=== PATIENT | male | born 1980 | race Caucasian/White ===

== ENCOUNTER 2020-01-02 08:08 | Emergency (ER) | payer OTHER ==
[2020-01-02 08:18] VITALS: RESP 18
[2020-01-02 08:39] LABS: Appearance,Urine Clear (Clear); Bacteria,Urine Rare /hpf; Bilirubin,Urine Negative (Negative); Blood,Urine Negative (Negative); Color,Urine Yellow; Glucose,Urine (UA) Negative (Negative); Ketones,Urine 1+ (Negative); Leukocyte Esterase,Urine Trace (Negative); Mucus,Urine Rare /hpf; Nitrite,Urine Negative (Negative); PH, Urine 6.5 (5.0-8.0); Protein,Urine 1+ (Negative); Specific Gravity,Urine 1.038 (1.001-1.035); WBC,Urine 1 /hpf (0-5)
--- NOTE | 2020-01-02 08:45 | ED ---
General Adult HPI - General Chief complaint: Urogenital Stated complaint: Tooth pain and Male Time Seen by Provider: 01/02/20 08:19 Source: patient, RN notes reviewed Mode of arrival: ambulatory Limitations: no limitations - History of Present Illness Initial comments: 39-year-old male presents emergency Department with chief complaint of left upper dental pain, left testicular swelling. Patient states that he's had broken tooth for a while but states it's been coming more painful. Denies any fevers or chills no difficulty swallowing no sore throat mild swelling noted. Patient also states that he's had left testicular pain patient states it's swollen. Patient states he has no dysuria no penile discharge. Has no concern for possible STD no abdominal pain no history of hernia. - Related Data Previous Rx's Medication Instructions Recorded Ibuprofen [Motrin] 600 mg PO Q8HR PRN #30 tab 01/02/20 Penicillin V Potassium [Pen Vee K] 500 mg PO QID #40 tablet 01/02/20 Allergies Allergy/AdvReac Type Severity Reaction Status Date / Time morphine AdvReac Nausea Verified 01/02/20 08:18 Review of Systems ROS Statement: Those systems with pertinent positive or pertinent negative responses have been documented in the HPI. ROS Other: All systems not noted in ROS Statement are negative. Past Medical History Past Medical History: No Reported History History of Any Multi-Drug Resistant Organisms: None Reported Past Surgical History: No Surgical Hx Reported Past Psychological History: No Psychological Hx Reported Smoking Status: Current every day smoker Past Alcohol Use History: None Reported Past Drug Use History: Marijuana General Exam Limitations: no limitations General appearance: alert, in no apparent distress Head exam: Present: atraumatic, normocephalic, normal inspection Eye exam: Present: normal appearance, PERRL, EOMI. Absent: scleral icterus, conjunctival injection, periorbital swelling ENT exam: Present: mucous membranes moist. Absent: normal exam, normal oropharynx (Dental fracture left upper mild swelling noted no abscess that is drainable) Neck exam: Present: normal inspection, full ROM. Absent: tenderness, meningismus, lymphadenopathy Respiratory exam: Present: normal lung sounds bilaterally. Absent: respiratory distress, wheezes, rales, rhonchi, stridor Cardiovascular Exam: Present: regular rate, normal rhythm, normal heart sounds. Absent: systolic murmur, diastolic murmur, rubs, gallop, clicks GI/Abdominal exam: Present: soft, normal bowel sounds. Absent: distended, tenderness, guarding, rebound, rigid exam: Present: testicular tenderness, scrotal swelling, circumcision, other (Mild left testicular tenderness, swelling minimal no discharge). Absent: urethral discharge, vertical testicular lie Course Vital Signs 01/02/20 08:14 Temperature 98 F Pulse Rate 76 Respiratory 18 Rate Blood Pressure 141/92 O2 Sat by Pulse 99 Oximetry Medical Decision Making - Medical Decision Making 39-year-old presented for dental pain, scrotal pain. Ultrasound does not reveal any significant changes there is some calcification noted. Patient did have urinalysis unremarkable pending urine GC chlamydia. Patient does have a dental infection will placed on antibiotics. Patient will follow-up with PCP and neurology return parameters discussed. - Lab Data Lab Results 01/02/20 Range/Units 08:26 Urine Color Yellow Urine Appearance Clear (Clear) Urine pH 6.5 (5.0-8.0) Ur Specific [place] 1.038 H (1.001-1.035) Urine Protein 1+ H (Negative) Urine Glucose (UA) Negative (Negative) Urine Ketones 1+ H (Negative) Urine Blood Negative (Negative) Urine Nitrite Negative (Negative) Urine Bilirubin Negative (Negative) Urine Urobilinogen 3.0 (<2.0) mg/dL Ur Leukocyte Esterase Trace H (Negative) Urine WBC 1 (0-5) /hpf Urine Bacteria Rare H (None) /hpf Urine Mucus Rare H (None) /hpf Disposition Clinical Impression: Pain, dental, Testicular swelling, left Disposition: HOME SELF-CARE Condition: Stable Instructions (If sedation given, give patient instructions): Toothache (ED) Additional Instructions: Please return to the Emergency Department if symptoms worsen or any other concerns. Prescriptions: Ibuprofen [Motrin] 600 mg PO Q8HR PRN #30 tab PRN Reason: Pain Penicillin V Potassium [Pen Vee K] 500 mg PO QID #40 tablet Is patient prescribed a controlled substance at d/c from ED?: No Referrals: None,Stated [Primary Care Provider] - 1-2 days Time of Disposition: 09:40
--- NOTE | 2020-01-02 09:31 | US ---
EXAMINATION TYPE: US scrotum with doppler. Grayscale and color Doppler Duplex imaging performed of t he scrotum. DATE OF EXAM: 01/02/2020 COMPARISON: NONE CLINICAL HISTORY: left testicular pain. EXAM MEASUREMENTS: TESTICLES: Right Testicle: 5.8x 2.7 x 3.0 cm Left Testicle: 5.3 x 2.9 x 3.4 cm EPIDIDYMIS HEAD: Right Epididymis: 1.0 cm Left Epididymis: 1.0 cm Doppler performed to assess for testicular vascularity; good bilateral color flow and waveforms are s een. There is no evidence of testicular torsion. Presence of hydroceles: Right measuring 2.5 x 0.6 x 1.6cm Presence of varicoceles: no Right testicle has hyperechoic oval structure with shadowing, probable calcification measuring 0.3 x 0.2 x 0.2cm, Left has similar structure measuring 0.2 x 0.1 x 0.2 cm. IMPRESSION: 1. No suspicious changes to suggest torsion.
[2020-01-02] MEDS ORDERED: ACET/COD 300 MG/30 MG STARTER PACK 6 TAB BTL PO STA (09:40)
[2020-01-02] MEDS ORDERED: IBUPROFEN 600 MG TAB PO STA (09:40)
[2020-01-02] MEDS ORDERED: HYDROcodone/APAP 5-325MG 1 EACH TAB PO STA (09:40)
[2020-01-02 10:08] VITALS: BP 136/101; PULSE 69; TEMP 97.4
[2020-01-03 14:14] LABS: C. trachomatis,PCR Negative (Neg,Equiv); Chlamydia trachomatis Source Urine; N. gonorrhoeae,PCR Negative (Neg,Equiv); Neisseria Source Urine
== END 2020-01-02 10:08 | disposition home or self-care (01) ==
LOC: EC 08:08
DX: N50.89 Other specified disorders of the male genital organs (principal); S02.5XXA Fracture of tooth (traumatic), initial encounter for closed fracture; K04.7 Periapical abscess without sinus; F17.200 Nicotine dependence, unspecified, uncomplicated; Z88.5 Allergy status to narcotic agent; X58.XXXA Exposure to other specified factors, initial encounter
CPT/HCPCS: 76870; 81001; 87491; 87591; 93975; 99284

== ENCOUNTER 2020-02-11 13:53 | Emergency (ER) | payer OTHER ==
--- NOTE | 2020-02-11 14:23 | ED ---
General Adult HPI - General Source: patient, RN notes reviewed, old records reviewed Mode of arrival: ambulatory Limitations: no limitations <Landen Ceballos - Last Filed: 02/11/20 15:33> <Zafar Santosah Naeem - Last Filed: 02/13/20 08:30> - General Chief complaint: Recheck/Abnormal Lab/Rx Stated complaint: Recheck Time Seen by Provider: 02/11/20 14:08 - History of Present Illness Initial comments: 39-year-old male patient to ED for evaluation. Patient reports that he worked a significant amount of hours last week and is mostly consuming energy drinks and junk food. He states that he had worked something to the order of 70 hours. He reports that on and Wednesday called out of work because he is feeling v dex weak tired and had some dizziness. He denies any cough congestion fevers or chills. Patient reports that he got some rest and is now feeling much improved, has no acute complaints. He reports he is coming to the hospital today because his work wanted him evaluated at the emergency room before returning to work. Denies any fevers denies any other complaints. Patient declining a covid test t alexx. Systemic: Pt denies fatigue, fever/chills, rash. Pt denies weakness, night sweats, weight loss. Neuro: Pt denies headache, visual disturbances, syncope or pre-syncope. HEENT: Pt denies ocular discharge or irritation, otalgia, rhinorrhea, pharyngitis or notable lymphadenopathy. Cardiopulmonary: Pt denies chest pain, SOB, heart palpitations, dyspnea on exertion. Abdominal/GI: Pt denies abdominal pain, n/v/d. : Pt denies dysuria, burning w/ urination, frequency/urgency. Denies new onset urinary or bowel incontinence. MSK: Pt denies myalgia, loss of strength or function in extremities. Neuro: Pt denies new onset paresthesias. (Landen Ceballos) - Related Data Previous Rx's Medication Instructions Recorded Ibuprofen [Motrin] 600 mg PO Q8HR PRN #30 tab 01/02/20 Penicillin V Potassium [Pen Vee K] 500 mg PO QID #40 tablet 01/02/20 Allergies Allergy/AdvReac Type Severity Reaction Status Date / Time morphine AdvReac Nausea Verified 02/11/20 13:55 Review of Systems ROS Other: All systems not noted in ROS Statement are negative. <Landen Ceballos - Last Filed: 02/11/20 15:33> ROS Other: All systems not noted in ROS Statement are negative. <Lindsay Santos - Last Filed: 02/13/20 08:30> ROS Statement: Those systems with pertinent positive or pertinent negative responses have been documented in the HPI. Past Medical History Past Medical History: No Reported History History of Any Multi-Drug Resistant Organisms: None Reported Past Surgical History: No Surgical Hx Reported Past Psychological History: No Psychological Hx Reported Smoking Status: Current every day smoker Past Alcohol Use History: None Reported Past Drug Use History: Marijuana <Landen Ceballos - Last Filed: 02/11/20 15:33> General Exam Limitations: no limitations <Landen Ceballos - Last Filed: 02/11/20 15:33> - General Exam Comments Initial Comments: Constitutional: NAD, AOX3, Pt has pleasant affect. HEENT: NC/AT, trachea midline, neck supple, no lymphadenopathy. External ears appear normal, without discharge. Mucous membranes moist. Eyes PERRLA, EOM intact. There is no scleral icterus. No pallor noted. Cardiopulmonary: RRR, no murmurs, rubs or gallops, no JVD noted. Lungs CTAB in anterior and posterior momin. No peripheral edema. Abdominal exam: Abdomen soft and non-distended. Abdomen non-tender to palpation in all 4 quadrants. Bowel sounds active in LLQ. No hepatosplenomegaly. No ecchymosis Neuro: CN II-XII intact. No nuchal rigidity. No raccon eyes, no marroquin sign, no hemotympanum. No cervical spinal tenderness. MSK: No posterior calf tenderness bilaterally, homans sign negative bilaterally. Posterior tibialis and radial pulse +2 bilaterally. Sensation intact in upper and lower extremities. Full active ROM in upper and lower extremities, 5/5 stregnth. (Landen Ceballos) Course Vital Signs 02/11/20 02/11/20 13:56 15:41 Temperature 97.8 F 98.0 F Pulse Rate 99 85 Respiratory 18 20 Rate Blood Pressure 150/81 141/89 O2 Sat by Pulse 98 98 Oximetry Medical Decision Making - Lab Data Result diagrams: 02/11/20 14:42 02/11/20 14:42 - EKG Data -: EKG Interpreted by Me (and Dr. Santos ) <Landen Ceballos - Last Filed: 02/11/20 15:33> - Lab Data Result diagrams: 02/11/20 14:42 02/11/20 14:42 <Lindsay Santos - Last Filed: 02/13/20 08:30> - Medical Decision Making 39-year-old male patient to ED. Patient states that he called into work because he is just feeling very fatigued after working over 70 hours and consuming L besides energy drinks and junk food. Patient reports that he got a few days of rest and is feeling asymptomatic now no acute complaints. Requests clearance to return to work. Laboratory investigations are nonimpressive. EKG nonischemic. Patient will be discharged with recommendation of dietary modifications, outpatient follow up. Return precautions. Case discussed with Dr. Santos (Landen Ceballos) I was available for consultation in the emergency department. The history and physical exam were done by the midlevel provider. I was consulted for this patients care. I reviewed the case with the midlevel provider and based on their presentation of the patient, I agree with the assessment, medical decision making and plan of care as documented. Chart was dictated using [employer] unlimited dictation software. Attempts were made to correct any dictation errors however some typographical errors may persist. Patient seen and treated during Covid-19 pandemic. (Lindsay Santos) - Lab Data Lab Results 02/11/20 02/11/20 02/11/20 Range/Units 14:42 14:42 14:42 WBC 8.9 (3.8-10.6) k/uL RBC 5.44 (4.30-5.90) m/uL Hgb 15.9 (13.0-17.5) gm/dL Hct 47.1 (39.0-53.0) % MCV 86.5 (80.0-100.0) fL MCH 29.3 (25.0-35.0) pg MCHC 33.9 (31.0-37.0) g/dL RDW 12.7 (11.5-15.5) % Plt Count 311 (150-450) k/uL MPV 7.2 Neutrophils % 64 % Lymphocytes % 25 % Monocytes % 6 % Eosinophils % 3 % Basophils % 1 % Neutrophils # 5.7 (1.3-7.7) k/uL Lymphocytes # 2.2 (1.0-4.8) k/uL Monocytes # 0.5 (0-1.0) k/uL Eosinophils # 0.2 (0-0.7) k/uL Basophils # 0.1 (0-0.2) k/uL Sodium 138 (137-145) mmol/L Potassium 4.3 (3.5-5.1) mmol/L Chloride 106 (98-107) mmol/L Carbon Dioxide 22 (22-30) mmol/L Anion Gap 10 mmol/L BUN 9 (9-20) mg/dL Creatinine 0.68 (0.66-1.25) mg/dL Est GFR (CKD-EPI)AfAm >90 (>60 ml/min/1.73 sqM) Est GFR (CKD-EPI)NonAf >90 (>60 ml/min/1.73 sqM) Glucose 86 (74-99) mg/dL Calcium 9.9 (8.4-10.2) mg/dL Magnesium 2.0 (1.6-2.3) mg/dL Total Bilirubin 0.4 (0.2-1.3) mg/dL AST 30 (17-59) U/L ALT 16 (4-49) U/L Alkaline Phosphatase 55 (38-126) U/L Troponin I <0.012 (0.000-0.034) ng/mL Total Protein 7.5 (6.3-8.2) g/dL Albumin 4.6 (3.5-5.0) g/dL - EKG Data EKG Comments: Ventricular rate 92, WV interval 104, QRS 94, QT/QTC 326/403. Since rhythm w ith short WV. No concern for acute ischemia.. (Landen Ceballos) Disposition Is patient prescribed a controlled substance at d/c from ED?: No <Landen Ceballos - Last Filed: 02/11/20 15:33> <Lindsay Santos - Last Filed: 02/13/20 08:30> Clinical Impression: Fatigue Disposition: HOME SELF-CARE Condition: Stable Instructions (If sedation given, give patient instructions): Fatigue (ED) Additional Instructions: Follow up with PCP tomorrow. Recommend improving diet and stopping excessive c affeine intake. Return to ED with any worsening symptoms. Referrals: None,Stated [Primary Care Provider] - 1-2 days Ankit Chaudhary [STAFF PHYSICIAN] - 1-2 days Darby Naiud MD [REFERRING] - 1-2 days
[2020-02-11 14:50] LABS: Basophils # (A) 0.1 k/uL (0-0.2); Basophils % (A) 1 %; Eosinophils # (A) 0.2 k/uL (0-0.7); Eosinophils % (A) 3 %; HCT 47.1 % (39.0-53.0); HGB 15.9 gm/dL (13.0-17.5); Lymphocytes # (A) 2.2 k/uL (1.0-4.8); Lymphocytes % (A) 25 %; MCH 29.3 pg (25.0-35.0); MCHC 33.9 g/dL (31.0-37.0); MCV 86.5 fL (80.0-100.0); Mean Platelet Volume 7.2; Monocytes # (A) 0.5 k/uL (0-1.0); Monocytes % (A) 6 %; Neutrophils # (A) 5.7 k/uL (1.3-7.7); Neutrophils % (A) 64 %; Platelet Count 311 k/uL (150-450); RBC 5.44 m/uL (4.30-5.90); RDW 12.7 % (11.5-15.5); WBC 8.9 k/uL (3.8-10.6)
[2020-02-11 15:02] LABS: ALT 16 U/L (4-49); AST 30 U/L (17-59); African American GFR (CKD) >90 (>60 ml/min/1.73 sqM); Albumin 4.6 g/dL (3.5-5.0); Alkaline Phosphatase 55 U/L (38-126); Anion Gap 10 mmol/L; Blood Urea Nitrogen 9 mg/dL (9-20); Calcium 9.9 mg/dL (8.4-10.2); Carbon Dioxide 22 mmol/L (22-30); Chloride 106 mmol/L (98-107); Glucose 86 mg/dL (74-99); Non-African American GFR(CKD) >90 (>60 ml/min/1.73 sqM); Potassium 4.3 mmol/L (3.5-5.1); Sodium 138 mmol/L (137-145); Total Bilirubin 0.4 mg/dL (0.2-1.3); Total Protein 7.5 g/dL (6.3-8.2)
[2020-02-11 15:43] VITALS: BP 141/89; PULSE 85; RESP 20; TEMP 98
== END 2020-02-11 15:41 | disposition home or self-care (01) ==
LOC: EC 13:53
DX: R53.83 Other fatigue (principal); F17.200 Nicotine dependence, unspecified, uncomplicated; Z88.5 Allergy status to narcotic agent
CPT/HCPCS: 36415; 80053; 83735; 84484; 85025; 93005; 99285

== ENCOUNTER 2020-06-29 17:19 | Emergency (ER) | payer OTHER ==
[2020-06-29 17:23] VITALS: BP 134/92; PULSE 97; RESP 20; TEMP 97.6
--- NOTE | 2020-06-29 18:14 | ED ---
General Adult HPI - General Chief complaint: Skin/Abscess/Foreign Body Stated complaint: Abcess tooth Time Seen by Provider: 06/29/20 18:09 Source: patient Mode of arrival: ambulatory Limitations: no limitations - History of Present Illness Initial comments: Patient is a 39-year-old male presenting to the emergency Department with complaints of a possible dental abscess. Patient states for the last 2 days he's noticed some pain in his left upper teeth as well as some mild swelling to his face. He denies any fevers or chills. He denies any chest pain or shortness of breath. He denies any nausea or vomiting. He has been taking Tylenol and Motrin which seemed to be helping with his pain. He has no further complaints at this time. - Related Data Previous Rx's Medication Instructions Recorded Ibuprofen [Motrin] 600 mg PO Q8HR PRN #30 tab 01/02/20 Penicillin V Potassium [Pen Vee K] 500 mg PO QID #40 tablet 01/02/20 Penicillin V Potassium [Pen Vee K] 500 mg PO QID 7 Days #28 tablet 06/29/20 Allergies Allergy/AdvReac Type Severity Reaction Status Date / Time morphine AdvReac Nausea Verified 06/29/20 17:23 Review of Systems ROS Statement: Those systems with pertinent positive or pertinent negative responses have been documented in the HPI. ROS Other: All systems not noted in ROS Statement are negative. Past Medical History Past Medical History: Asthma History of Any Multi-Drug Resistant Organisms: None Reported Past Surgical History: No Surgical Hx Reported Past Psychological History: No Psychological Hx Reported Smoking Status: Current every day smoker Past Alcohol Use History: None Reported Past Drug Use History: Marijuana General Exam - General Exam Comments Initial Comments: GENERAL: Patient is well-developed and well-nourished. Patient is nontoxic and in no acute distress. HEAD: Atraumatic, normocephalic. EYES: Pupils equal round and reactive to light, extraocular movements intact, sclera anicteric, conjunctiva are normal. Eyelids were unremarkable. ENT: TMs normal, nares patent, oropharynx clear without exudates. Moist mucous membranes. Patient has pain along tooth #14, no visible abscess seen. He does have some mild left facial swelling, nothing below the mandible. NECK: Normal range of motion, supple without lymphadenopathy or JVD. LUNGS: Unlabored respirations. Breath sounds clear to auscultation bilaterally and equal. No wheezes rales or rhonchi. HEART: Regular rate and rhythm without murmurs, rubs or gallops. ABDOMEN: Soft, nontender, normoactive bowel sounds. No guarding, no rebound. No masses appreciated. : Deferred MUSCULOSKELETAL: Normal extremities with adequate strength and normal range of motion, no pitting or edema. No clubbing or cyanosis. NEUROLOGICAL: Patient is alert and oriented x 3. Motor and sensory are also intact. Cranial nerves II through XII grossly intact. Symmetrical smile. Normal speech, normal gait. PSYCH: Normal mood, normal affect. SKIN: Warm, Dry, normal turgor, no rashes or lesions noted. Limitations: no limitations Course Vital Signs 06/29/20 17:21 Temperature 97.6 F Pulse Rate 97 Respiratory 20 Rate Blood Pressure 134/92 O2 Sat by Pulse 100 Oximetry Medical Decision Making - Medical Decision Making Patient is a 39-year-old male here for left-sided dental pain for 2 days. No visible abscess seen, does have some mild facial swelling. No fevers, his vitals are stable. I will start him on antibiotics. He can alternate between Tylenol and Motrin for pain control. He is to follow-up with his dentist. Patient is stable for discharge and in agreement with this plan of care. Case discussed with Dr. Jeong. Disposition Clinical Impression: Pain, dental, Dental abscess Disposition: HOME SELF-CARE Condition: Stable Instructions (If sedation given, give patient instructions): Dental Abscess (ED) Additional Instructions: Please return to the Emergency Department if symptoms worsen or any other conc erns. Take antibiotic as prescribed. Alternate between Tylenol and Motrin for pain control. Follow-up with your dentist. Prescriptions: Penicillin V Potassium [Pen Vee K] 500 mg PO QID 7 Days #28 tablet Is patient prescribed a controlled substance at d/c from ED?: No Referrals: None,Stated [Primary Care Provider] - 1-2 days Time of Disposition: 18:13
== END 2020-06-29 18:23 | disposition home or self-care (01) ==
LOC: EC 17:19
DX: K04.7 Periapical abscess without sinus (principal); J45.909 Unspecified asthma, uncomplicated; F17.200 Nicotine dependence, unspecified, uncomplicated
CPT/HCPCS: 99282

== ENCOUNTER 2020-07-29 21:02 | Emergency (ER) | payer OTHER ==
[2020-07-29 21:08] VITALS: BP 128/85; PULSE 99; RESP 18; TEMP 98
[2020-07-29] MEDS ORDERED: IBUPROFEN 600 MG STARTER PACK 4 TAB BTL PO STA (21:57)
[2020-07-29] MEDS ORDERED: SULFAMETH-TMP DS STARTER PACK 2 TAB BTL PO STA (21:57)
--- NOTE | 2020-07-29 21:58 | ED ---
Skin/Abscess/FB HPI - General Chief complaint: Skin/Abscess/Foreign Body Stated complaint: RT leg abscess Time Seen by Provider: 07/29/20 21:26 Source: patient Mode of arrival: ambulatory Limitations: no limitations - History of Present Illness Initial comments: 39-year-old male patient presents to the emergency department today for evaluation of abscess to the right calf. Patient states that this started a few days ago. States it was much smaller and has become larger in size. States he was able to drain pus from the area. States that the area is tender to touch. Denies fever or chills. Denies nausea or vomiting. Denies history of similar lesion. Denies any IV drug use. - Related Data Previous Rx's Medication Instructions Recorded Ibuprofen [Motrin] 600 mg PO Q8HR PRN #30 tab 01/02/20 Penicillin V Potassium [Pen Vee K] 500 mg PO QID #40 tablet 01/02/20 Penicillin V Potassium [Pen Vee K] 500 mg PO QID 7 Days #28 tablet 06/29/20 Ibuprofen [Motrin] 600 mg PO Q8HR PRN #30 tab 07/29/20 Sulfamethoxazole/Trimethoprim 1 each PO BID #20 tablet 07/29/20 [Bactrim DS 800-160 mg] Allergies Allergy/AdvReac Type Severity Reaction Status Date / Time morphine AdvReac Nausea Verified 07/29/20 21:08 Review of Systems ROS Statement: Those systems with pertinent positive or pertinent negative responses have been documented in the HPI. ROS Other: All systems not noted in ROS Statement are negative. Past Medical History Past Medical History: Asthma History of Any Multi-Drug Resistant Organisms: None Reported Past Surgical History: No Surgical Hx Reported Past Psychological History: No Psychological Hx Reported Smoking Status: Current every day smoker Past Alcohol Use History: Occasional Past Drug Use History: Marijuana General Exam Limitations: no limitations General appearance: alert, in no apparent distress, other (This is a well- developed, well-nourished adult male patient in no acute distress. Vital signs upon presentation are temperature 98.0F, pulse 99, respirations 18, blood pressure 128/85, pulse ox 98% on room air.) Respiratory exam: Present: normal lung sounds bilaterally. Absent: respiratory distress, wheezes, rales, rhonchi, stridor Cardiovascular Exam: Present: regular rate, normal rhythm, normal heart sounds. Absent: systolic murmur, diastolic murmur, rubs, gallop, clicks Extremities exam: Present: full ROM, normal capillary refill, other (There is 3 cm x 3 cm area of erythema, swelling, central scabbing with purulent drainage noted to the right medial calf. Very minimal surrounding erythema. No lymphangitis.). Absent: normal inspection, tenderness, pedal edema, joint swelling, calf tenderness Neurological exam: Present: alert, oriented X3, CN II-XII intact Psychiatric exam: Present: normal affect, normal mood Skin exam: Present: warm, dry, intact, normal color. Absent: rash Course Vital Signs 07/29/20 07/29/20 21:05 22:04 Temperature 98.0 F 98.0 F Pulse Rate 99 99 Respiratory 18 18 Rate Blood Pressure 128/85 128/85 O2 Sat by Pulse 98 98 Oximetry Medical Decision Making - Medical Decision Making 39-year-old male patient presented to the emergency department today for evaluation of abscess to the right calf. Physical examination did reveal a an abscess to the right medial calf with central scab lesion, was able to express. Fluid which was cultured. He is instructed to apply warm compresses. I'll be started on antibiotics. He is instructed to follow-up with primary care physician for recheck in 1-2 days. Return parameters were discussed in detail. He verbalizes understanding and agrees with this plan. My attending is Dr. Israel. Disposition Clinical Impression: Abscess of right lower leg Disposition: HOME SELF-CARE Condition: Good Instructions (If sedation given, give patient instructions): Abscess (ED) Additional Instructions: Apply warm compresses. Complete antibiotic prescription and full. Follow-up with your primary care physician for recheck in 1-2 days. Return to the emergency department for any new, worsening, or concerning symptoms. Prescriptions: Sulfamethoxazole/Trimethoprim [Bactrim DS 800-160 mg] 1 each PO BID #20 tablet Ibuprofen [Motrin] 600 mg PO Q8HR PRN #30 tab PRN Reason: Pain Is patient prescribed a controlled substance at d/c from ED?: No Referrals: Darby Naidu MD [Primary Care Provider] - 1-2 days Time of Disposition: 21:58
== END 2020-07-29 22:05 | disposition home or self-care (01) ==
LOC: EC 21:02
DX: L02.415 Cutaneous abscess of right lower limb (principal); J45.909 Unspecified asthma, uncomplicated; F17.200 Nicotine dependence, unspecified, uncomplicated; Z88.5 Allergy status to narcotic agent
CPT/HCPCS: 87070; 87077; 87186; 87205; 99282

== ENCOUNTER 2020-11-06 19:34 | Emergency (ER) | payer OTHER ==
[~2020-11-06 19:34] MED LIST: DIPH,PERTUS(ACELL)TETVAC-LF 0.5 ML VIAL IM ONE; ONDANSETRON 4 MG/2 ML VIAL IVP STA; SODIUM CHLORIDE 0.9% 1,000 ML IV STA
[2020-11-06 19:38] VITALS: BP 158/105; PULSE 92; RESP 18; TEMP 97.8
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
[2020-11-06 19:49] LABS: Glucose,Whole Blood 132 mg/dL (75-99)
[2020-11-06 19:51] LABS: Basophils # (A) 0.1 k/uL (0-0.2); Basophils % (A) 1 %; Eosinophils # (A) 0.2 k/uL (0-0.7); Eosinophils % (A) 2 %; HGB 15.4 gm/dL (13.0-17.5); Lymphocytes # (A) 2.6 k/uL (1.0-4.8); Lymphocytes % (A) 23 %; MCHC 34.2 g/dL (31.0-37.0); MCV 87.7 fL (80.0-100.0); Mean Platelet Volume 7.4; Monocytes # (A) 0.6 k/uL (0-1.0); Monocytes % (A) 5 %; Neutrophils # (A) 7.5 k/uL (1.3-7.7); Neutrophils % (A) 67 %; Platelet Count 302 k/uL (150-450); RBC 5.13 m/uL (4.30-5.90); RDW 13.3 % (11.5-15.5); WBC 11.3 k/uL (3.8-10.6)
[2020-11-06] MEDS ORDERED: LIDOCAINE 1%-EPI 1:100,000 20 ML VIAL SQ STA (19:55)
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
[2020-11-06 20:02] LABS: ALT 24 U/L (4-49); AST 37 U/L (17-59); African American GFR (CKD) >90 (>60 ml/min/1.73 sqM); Albumin 3.7 g/dL (3.5-5.0); Alcohol <10 mg/dL; Alkaline Phosphatase 60 U/L (38-126); Anion Gap 7 mmol/L; Blood Urea Nitrogen 11 mg/dL (9-20); Calcium 8.9 mg/dL (8.4-10.2); Carbon Dioxide 23 mmol/L (22-30); Chloride 109 mmol/L (98-107); Glucose 111 mg/dL (74-99); Non-African American GFR(CKD) >90 (>60 ml/min/1.73 sqM); Potassium 3.3 mmol/L (3.5-5.1); Sodium 139 mmol/L (137-145); Total Bilirubin 0.4 mg/dL (0.2-1.3); Total Protein 6.1 g/dL (6.3-8.2)
[2020-11-06 20:29] LABS: Prothrombin Time 10.6 sec (9.0-12.0)
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
--- NOTE | 2020-11-06 21:22 | XR ---
Result: History: Pain. Comparison: None available. Technique: 3 views of the left wrist. Findings: There is a 7 mm osseous fragment at the dorsal aspect of the wrist. No evidence of dislocation. No radiopaque foreign body. Impression: 7 mm fracture fragment at the dorsal aspect of the wrist without obvious donor site. However suspecte d triquetrum as source.
[2020-11-06] MEDS ORDERED: HYDROmorphone 0.5 MG/0.5 ML SYRINGE IVP STA (21:25)
--- NOTE | 2020-11-06 21:25 | XR ---
Result: Clinical History: Pain. Comparison: None available. Technique: 3 views of the left shoulder. Findings: The bone mineralization is appropriate for age. No acute fracture or dislocation is seen. The acromioclavicular and glenohumeral joints are preserve d . The humeral head is well-seated in the glenoid. The visualized lung is clear. Impression: No acute osseous abnormality.
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
== END 2020-11-06 23:00 | disposition home or self-care (01) ==
LOC: EC 19:34
DX: S62.92XA Unspecified fracture of left hand, initial encounter for closed fracture (principal); S01.112A Laceration without foreign body of left eyelid and periocular area, initial encounter; S43.402A Unspecified sprain of left shoulder joint, initial encounter; J45.909 Unspecified asthma, uncomplicated; F17.200 Nicotine dependence, unspecified, uncomplicated; Z88.5 Allergy status to narcotic agent; V47.5XXA Car driver injured in collision with fixed or stationary object in traffic accident, initial encounter; Y92.410 Unspecified street and highway as the place of occurrence of the external cause
CPT/HCPCS: 86900; 86901; 80053; 84484; 85025; 85610; 85730; 86850; 80320; 72170; 73030; 73080; 73110; 71045; 72125; 70450; 71260; 74177; 90715; 99285; 90471; 96361; 96374; 96375; J2405; J1170; Q9967

== ENCOUNTER 2023-11-06 19:09 | Emergency (ER) | payer OTHER | END 2023-11-06 20:00 | disposition home or self-care (01) | LOC: EC 19:09 | DX: K04.7 Periapical abscess without sinus (principal) | CPT/HCPCS: 99282 ==

== ENCOUNTER 2024-07-25 14:43 | Inpatient (IN) | payer OTHER ==
--- NOTE | 2024-07-25 16:27 | XR ---
EXAMINATION TYPE: XR KUB DATE OF EXAM: 07/25/2024 4:22 PM COMPARISON: None CLINICAL INDICATION: Male, 43 years old with history of abdominal pain; PHH, pain TECHNIQUE: One radiographic view of the abdomen was obtained. FINDINGS: Lung bases are clear. No evidence for free intraperitoneal air. No dilated small bowel or air-fluid levels. Scattered mild stool. No suspicious calcifications are seen. IMPRESSION: No evidence for free air or bowel obstruction. Scattered mild stool. [facility], Workstation: [facility], 07/25/2024 4:25 PM
[2024-07-25 16:29] LABS: Basophils # (A) 0.08 10*3/uL (0.00-0.10); Basophils % (A) 0.4 %; Eosinophils # (A) 0.23 10*3/uL (0.04-0.35); Eosinophils % (A) 1.2 %; HCT 53.8 % (39.6-50.0); HGB 18.2 g/dL (13.0-17.0); Lymphocytes # (A) 3.08 10*3/uL (0.90-5.00); Lymphocytes % (A) 15.6 %; MCH 28.3 pg (27.0-32.0); MCHC 33.8 g/dL (32.0-37.0); MCV 83.7 fL (80.0-97.0); Monocytes # (A) 1.57 10*3/uL (0.20-1.00); Neutrophils # (A) 14.69 10*3/uL (1.80-7.70); Neutrophils % (A) 74.4 %; Platelet Count 340 10*3/uL (140-440); RBC 6.43 10*6/uL (4.40-5.60); RDW 13.2 % (11.5-14.5); WBC 19.72 10*3/uL (4.50-10.00)
[2024-07-25 16:32] LABS: Appearance,Urine Clear (Clear); Bilirubin,Urine Negative (Negative); Blood,Urine Negative (Negative); Color,Urine Light Yellow; Glucose,Urine (UA) Negative (Negative); Ketones,Urine Negative (Negative); Leukocyte Esterase,Urine Negative (Negative); Nitrite,Urine Negative (Negative); PH, Urine 5.5 (5.0-8.0); Protein,Urine Negative (Negative); Specific Gravity,Urine 1.018 (1.001-1.035); Urobilinogen,Urine <2.0 mg/dL (<2.0)
[2024-07-25 16:40] LABS: ALT 20 U/L (4-49); AST 25 U/L (17-59); African American GFR (CKD) >90 (>60 ml/min/1.73 sqM); Albumin 4.8 g/dL (3.5-5.0); Alkaline Phosphatase 68 U/L (38-126); Anion Gap 8 mmol/L; Blood Urea Nitrogen 11 mg/dL (9-20); Calcium 10.6 mg/dL (8.4-10.2); Carbon Dioxide 30 mmol/L (22-30); Chloride 101 mmol/L (98-107); Glucose 102 mg/dL (74-99); Non-African American GFR(CKD) >90 (>60 ml/min/1.73 sqM); Potassium 4.7 mmol/L (3.5-5.1); Sodium 139 mmol/L (137-145); Total Bilirubin 0.6 mg/dL (0.2-1.3); Total Protein 7.8 g/dL (6.3-8.2)
[2024-07-25] MEDS: ONDANSETRON 4 MG/2 ML VIAL IVP STA (16:42)
[2024-07-25] MEDS: KETOROLAC 15 MG/ML 1 ML VIAL IVP STA (16:56)
[2024-07-25 17:18] LABS: Lipase >20000 U/L (23-300)
[2024-07-25 17:20] LABS: Amylase 3112 U/L (30-110)
[2024-07-25] MEDS: HYDROmorphone 0.5 MG/0.5 ML SYRINGE IVP STA ×2 (17:36→21:36)
[2024-07-25] MEDS: SODIUM CHLORIDE 0.9% 1,000 ML IV ONE (17:37)
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
--- NOTE | 2024-07-25 18:16 | ED ---
Abdominal Pain HPI - General Chief Complaint: Abdominal Pain Stated Complaint: Abd pain Time Seen by Provider: 07/25/24 15:13 Source: patient Limitations: no limitations - History of Present Illness Initial Comments: 43-year-old male no known medical history presenting with abdominal pain with that started this morning. Patient reports it is diffuse and 10 out of 10. Patient reports he smokes a pack a day. Patient reports he drinks alcohol occasionally but not very often. Patient reports he is feeling nauseous and has had some episodes of nonbloody vomiting. Patient denies any fevers, chills, urinary or bowel complaints. - Related Data Home Medications Medication Instructions Recorded Confirmed No Known Home Medications 11/06/20 07/25/24 Allergies Allergy/AdvReac Type Severity Reaction Status Date / Time morphine AdvReac Nausea Verified 07/25/24 19:30 Review of Systems ROS Statement: Those systems with pertinent positive or pertinent negative responses have been documented in the HPI. ROS Other: All systems not noted in ROS Statement are negative. Constitutional: Denies: fever, chills Respiratory: Denies: cough, dyspnea Cardiovascular: Denies: chest pain, palpitations Gastrointestinal: Reports: abdominal pain, nausea, vomiting Genitourinary: Denies: urgency, dysuria Musculoskeletal: Denies: back pain Skin: Denies: rash, lesions Neurological: Denies: headache, weakness Past Medical History Past Medical History: Asthma History of Any Multi-Drug Resistant Organisms: None Reported Past Surgical History: No Surgical Hx Reported Past Psychological History: No Psychological Hx Reported Smoking Status: Current every day smoker Past Alcohol Use History: Occasional Past Drug Use History: Marijuana General Exam Limitations: no limitations General appearance: alert, anxious Respiratory exam: Present: normal lung sounds bilaterally. Absent: respiratory distress, wheezes Cardiovascular Exam: Present: regular rate, normal rhythm GI/Abdominal exam: Present: soft, tenderness Back exam: Present: normal inspection Neurological exam: Present: alert, oriented X3 Psychiatric exam: Present: normal affect, normal mood Skin exam: Present: warm, dry, intact Course Vital Signs 07/25/24 07/25/24 14:52 18:36 Temperature 97.6 F Pulse Rate 67 89 Respiratory 18 20 Rate Blood Pressure 153/99 153/99 O2 Sat by Pulse 100 99 Oximetry Procedures - [place] Protocol (Time Out) Nurse: Vijay Arrieta Medical Decision Making - Medical Decision Making Was pt. sent in by a medical professional or institution (CAROLIN Rose, ASSET PROTECTION SPECIALIST, urgent care, hospital, or fpc...) When possible be specific @ -No Did you speak to anyone other than the patient for history (EMS, parent, family, police, friend...)? What history was obtained from this source @ -No Did you review nursing and triage notes (agree or disagree)? Why? @ -I reviewed and agree with nursing and triage notes Were old charts reviewed (outside hosp., previous admission, EMS record, old EKG, old radiological studies, urgent care reports/EKG's, fpc records)? Report findings @ -No old charts were reviewed Differential Diagnosis? @ -Differential Abdominal Pain Men: Appendicitis, cholecystitis, diverticulosis, ischemic bowel, pancreatitis, h epatitis, UTI, gastroenteritis, AAA, incarcerated hernia, bowel obstruction, constipation, inflammatory bowel, hepatitis, peptic ulcer disease, splenic infarction, perforated viscus, testicular torsion, this is not meant to be an all-inclusive list EKG interpreted by me (3pts min.). @ -Sinus rhythm ventricular rate of 60 bpm, QTc of 384 ms, no acute ST wave changes indicative of ischemia. X-rays interpreted by me (1pt min.). @ -KUB shows no evidence of free air or bowel obstruction, scattered mild stool. CT interpreted by me (1pt min.). @ -CT showed signs of acute interstitial pancreatitis. U/S interpreted by me (1pt. min.). @ -Gallbladder ultrasound showed no evidence of acute process What testing was considered but not performed or refused? (CT, X-rays, U/S, labs)? Why? @ -None What meds were considered but not given or refused? Why? @ -None Did you discuss the management of the patient with other professionals (kathia valenzuela i.e. CAROLIN Rose, ASSET PROTECTION SPECIALIST, lab, RT, psych nurse, manager social responsibility, outside machinist helper, teacher, [place] [employer] police officer, keycase assembler)? Give summary @ -Case was discussed with ED attending physician Dr. Gresham. Case was dis cussed with on-call ASSET PROTECTION SPECIALIST for [facility] who accepted admission. Was smoking cessation discussed for >3mins.? @ -No Was critical care preformed (if so, how long)? @ -No Were there social determinants of health that impacted care today? How? (Homelessness, low income, unemployed, alcoholism, drug addiction, transportation, low edu. Level, literacy, decrease access to med. care, usp, re hab)? @ -No Was there de-escalation of care discussed even if they declined (Discuss DNR or withdrawal of care, Hospice)? DNR status @ -No What co-morbidities impacted this encounter? (DM, HTN, Smoking, COPD, CAD, Cancer, CVA, ARF, Chemo, Hep., AIDS, mental health diagnosis, sleep apnea, morbid obesity)? @ -None Was patient admitted / discharged? Hospital course, mention meds given and route, prescriptions, significant lab abnormalities, going to OR and other pertinent info. @ -Labs were remarkable for elevated lipase and amylase. CT showed signs of pancreatitis. Patient was admitted to the hospital for further evaluation and management. Undiagnosed new problem with uncertain prognosis? @ -No Drug Therapy requiring intensive monitoring for toxicity (Heparin, Nitro, Insulin, Cardizem)? @ -No Were any procedures done? @ -No Diagnosis/symptom? @ -Pancreatitis Acute, or Chronic, or Acute on Chronic? @ -Acute Uncomplicated (without systemic symptoms) or Complicated (systemic symptoms)? @ -Default Side effects of treatment? @ -No Exacerbation, Progression, or Severe Exacerbation? @ -No Poses a threat to life or bodily function? How? (Chest pain, USA, AL, pneumonia, PE, COPD, DKA, ARF, appy, cholecystitis, CVA, Diverticulitis, Homicidal, Suicidal, threat to staff... and all critical care pts) @ -Yes, untreated pancreatitis can proceed to necrosis, sepsis, and endorgan damage. - Lab Data Result diagrams: 07/25/24 16:07 07/25/24 16:07 Lab Results 07/25/24 07/25/24 07/25/24 Range/Units 16:07 16:07 16:07 WBC 19.72 H (4.50-10.00) 10*3/uL RBC 6.43 H (4.40-5.60) 10*6/uL Hgb 18.2 H (13.0-17.0) g/dL Hct 53.8 H (39.6-50.0) % MCV 83.7 (80.0-97.0) fL MCH 28.3 (27.0-32.0) pg MCHC 33.8 (32.0-37.0) g/dL Plt Count 340 (140-440) 10*3/uL MPV 10.0 (9.5-12.2) fL Immature Gran % (Auto) 0.4 % Neutrophils % 74.4 % Lymphocytes % 15.6 % Monocytes % 8.0 % Eosinophils % 1.2 % Basophils % 0.4 % Immature Gran # 0.07 H (0.00-0.04) 10*3/uL Neutrophils # 14.69 H (1.80-7.70) 10*3/uL Lymphocytes # 3.08 (0.90-5.00) 10*3/uL Monocytes # 1.57 H (0.20-1.00) 10*3/uL Eosinophils # 0.23 (0.04-0.35) 10*3/uL Basophils # 0.08 (0.00-0.10) 10*3/uL Sodium 139 (137-145) mmol/L Potassium 4.7 (3.5-5.1) mmol/L Chloride 101 (98-107) mmol/L Carbon Dioxide 30 (22-30) mmol/L Anion Gap 8 mmol/L BUN 11 (9-20) mg/dL Creatinine 0.85 (0.66-1.25) mg/dL Est GFR (CKD-EPI)AfAm >90 (>60 ml/min/1.73 sqM) Est GFR (CKD-EPI)NonAf >90 (>60 ml/min/1.73 sqM) Glucose 102 H (74-99) mg/dL Plasma Lactic Acid Dominic (0.7-2.0) mmol/L Calcium 10.6 H (8.4-10.2) mg/dL Total Bilirubin 0.6 (0.2-1.3) mg/dL AST 25 (17-59) U/L ALT 20 (4-49) U/L Alkaline Phosphatase 68 (38-126) U/L Total Protein 7.8 (6.3-8.2) g/dL Albumin 4.8 (3.5-5.0) g/dL Amylase 3112 H* (30-110) U/L Lipase >02636 H (23-300) U/L Urine Color Light Yellow Urine Appearance Clear (Clear) Urine pH 5.5 (5.0-8.0) Ur Specific Elmo 1.018 (1.001-1.035) Urine Protein Negative (Negative) Urine Glucose (UA) Negative (Negative) Urine Ketones Negative (Negative) Urine Blood Negative (Negative) Urine Nitrite Negative (Negative) Urine Bilirubin Negative (Negative) Urine Urobilinogen <2.0 (<2.0) mg/dL Ur Leukocyte Esterase Negative (Negative) 07/25/24 Range/Units 16:07 WBC (4.50-10.00) 10*3/uL RBC (4.40-5.60) 10*6/uL Hgb (13.0-17.0) g/dL Hct (39.6-50.0) % MCV (80.0-97.0) fL MCH (27.0-32.0) pg MCHC (32.0-37.0) g/dL Plt Count (140-440) 10*3/uL MPV (9.5-12.2) fL Immature Gran % (Auto) % Neutrophils % % Lymphocytes % % Monocytes % % Eosinophils % % Basophils % % Immature Gran # (0.00-0.04) 10*3/uL Neutrophils # (1.80-7.70) 10*3/uL Lymphocytes # (0.90-5.00) 10*3/uL Monocytes # (0.20-1.00) 10*3/uL Eosinophils # (0.04-0.35) 10*3/uL Basophils # (0.00-0.10) 10*3/uL Sodium (137-145) mmol/L Potassium (3.5-5.1) mmol/L Chloride (98-107) mmol/L Carbon Dioxide (22-30) mmol/L Anion Gap mmol/L BUN (9-20) mg/dL Creatinine (0.66-1.25) mg/dL Est GFR (CKD-EPI)AfAm (>60 ml/min/1.73 sqM) Est GFR (CKD-EPI)NonAf (>60 ml/min/1.73 sqM) Glucose (74-99) mg/dL Plasma Lactic Acid Dominic 2.0 (0.7-2.0) mmol/L Calcium (8.4-10.2) mg/dL Total Bilirubin (0.2-1.3) mg/dL AST (17-59) U/L ALT (4-49) U/L Alkaline Phosphatase (38-126) U/L Total Protein (6.3-8.2) g/dL Albumin (3.5-5.0) g/dL Amylase (30-110) U/L Lipase (23-300) U/L Urine Color Urine Appearance (Clear) Urine pH (5.0-8.0) Ur Specific Elmo (1.001-1.035) Urine Protein (Negative) Urine Glucose (UA) (Negative) Urine Ketones (Negative) Urine Blood (Negative) Urine Nitrite (Negative) Urine Bilirubin (Negative) Urine Urobilinogen (<2.0) mg/dL Ur Leukocyte Esterase (Negative) Disposition Clinical Impression: Pancreatitis Disposition: ADMITTED IP TO THIS [facility] Referrals: None,Stated [Primary Care Provider] - 1-2 days Decision Date: 07/25/24 Decision Time: 17:00
--- NOTE | 2024-07-25 19:23 | CT ---
EXAMINATION TYPE: CT abdomen pelvis w con CT DLP: 810.7 mGycm, Automated exposure control for dose reduction was used. DATE OF EXAM: 07/25/2024 7:01 PM COMPARISON: CT chest abdomen and pelvis 11/06/2020, gallbladder ultrasound 07/25/2024 CLINICAL INDICATION:Male, 43 years old with history of Abdominal pain; abdominal pain TECHNIQUE: Standard CT of the abdomen and pelvis following the administration of 100 cc of Isovue 3 00 IV contrast material. Coronal and sagittal reformats were performed. FINDINGS: LOWER CHEST: Unremarkable ABDOMEN LIVER: Borderline enlarged measuring 19.4 cm in CC dimension. No focal lesion. GALLBLADDER AND BILE DUCTS: Unremarkable. PANCREAS: Hypodense heterogenous appearance of the pancreas most prominent within the head, neck and uncinate process. There is surrounding nonorganized fluid stranding changes. Fluid extends into the r etroperitoneum along the right paracolic gutter and along the undersurface of the gastric fundus and around the duodenum into the mesentery. No pancreatic ductal dilatation or coarse calcifications. SPLEEN: Unremarkable. ADRENAL GLANDS: Unremarkable. KIDNEYS AND URETERS: No evidence of hydronephrosis or renal calculus. The kidneys enhance symmetrical ly. Contrast is demonstrated within both collecting systems and proximal ureters on the delayed phase . PELVIS BLADDER: Unremarkable REPRODUCTIVE: Unremarkable. ABDOMEN & PELVIS STOMACH AND BOWEL: Stomach and duodenum demonstrate no wall thickening with surrounding regions of fl uid identified. The appendix is within normal limits. No evidence of bowel obstruction. PERITONEUM: No evidence of pneumoperitoneum. VASCULATURE: No evidence of aortic aneurysm. Right-sided pelvic phlebolith. MUSCULOSKELETAL: No acute osseous abnormalities. Benign bone island within the left ischial tuberosit y. Minimal multilevel degenerative disc disease of the thoracolumbar junction. LYMPH NODES: No evidence for lymphadenopathy. SOFT TISSUE/ABDOMINAL WALL: Tiny fat-containing umbilical hernia. IMPRESSION: 1. Findings suggestive of acute interstitial edematous pancreatitis with heterogenous appearance of the proximal pancreas with surrounding nonorganized fluid and stranding. Correlate with lipase values . 2. Borderline enlarged liver. [facility], , 07/25/2024 7:20 PM
[2024-07-25] MEDS: KETOROLAC 15 MG/ML 1 ML VIAL IVP SCH (20:02)
[2024-07-25] MEDS: SODIUM CHLORIDE 0.9% 1,000 ML IV SCH (20:52)
[2024-07-25] MEDS: HYDROmorphone 0.5 MG/0.5 ML SYRINGE IVP PRN (22:33)
[2024-07-25] MEDS: NICOTINE 14MG/24HR PATCH TRANSDERM SCH (22:34)
[2024-07-26] MEDS ORDERED: HYDROmorphone 1 MG/ML 1 ML SYRINGE IM PRN (02:17)
[2024-07-26] MEDS: HYDROmorphone 1 MG/ML 1 ML SYRINGE IVP PRN (02:28)
[2024-07-26] MEDS: ACETAMINOPHEN IV (For NPO) 1,000 MG in EMPTY BAG 1 BAG IVPB SCH (02:49)
[2024-07-26] MEDS: SODIUM CHLORIDE 0.9% 1,000 ML IV SCH (02:55)
[2024-07-26] MEDS: ONDANSETRON 4 MG/2 ML VIAL IVP PRN (05:09)
[2024-07-26 07:18] LABS: Basophils # (A) 0.05 10*3/uL (0.00-0.10); Basophils % (A) 0.2 %; Eosinophils # (A) 0.03 10*3/uL (0.04-0.35); Eosinophils % (A) 0.1 %; HGB 16.9 g/dL (13.0-17.0); Lymphocytes # (A) 1.35 10*3/uL (0.90-5.00); MCH 28.1 pg (27.0-32.0); MCHC 33.8 g/dL (32.0-37.0); MCV 83.2 fL (80.0-97.0); Mean Platelet Volume 9.7 fL (9.5-12.2); Monocytes # (A) 1.98 10*3/uL (0.20-1.00); Monocytes % (A) 8.8 %; Neutrophils # (A) 18.88 10*3/uL (1.80-7.70); Neutrophils % (A) 84.5 %; Platelet Count 293 10*3/uL (140-440); RBC 6.01 10*6/uL (4.40-5.60); WBC 22.38 10*3/uL (4.50-10.00)
[2024-07-26 07:32] LABS: ALT 17 U/L (4-49); AST 20 U/L (17-59); African American GFR (CKD) >90 (>60 ml/min/1.73 sqM); Albumin 3.9 g/dL (3.5-5.0); Alkaline Phosphatase 69 U/L (38-126); Anion Gap 8 mmol/L; Blood Urea Nitrogen 11 mg/dL (9-20); Calcium 9.5 mg/dL (8.4-10.2); Carbon Dioxide 24 mmol/L (22-30); Chloride 104 mmol/L (98-107); Glucose 126 mg/dL (74-99); Non-African American GFR(CKD) >90 (>60 ml/min/1.73 sqM); Potassium 3.9 mmol/L (3.5-5.1); Sodium 136 mmol/L (137-145); Total Bilirubin 0.9 mg/dL (0.2-1.3); Total Protein 6.4 g/dL (6.3-8.2)
[2024-07-26 08:10] LABS: Amylase 453 U/L (30-110); Lipase 2496 U/L (23-300)
[2024-07-26 08:28] VITALS: BP 156/87; PULSE 62; RESP 16; TEMP 97.6
--- NOTE | 2024-07-26 14:19 | P.HPIM ---
History of Present Illness H&P Date: 07/26/24 This is a 43 year old male came in for abdominal pain with concern for acute pancreatitis. patient was made NPO. His lipase and amylase were elevated. White blood cell count of 19.72. And lipase was greater than 20,000. At abdominal pelvis CT reveals acute interstitial edematous pancreatitis with a heterogenous appearance of the proximal pancreas with surrounding organized fluid and stranding. Related correlate with lipase values and borderline enlarged liver. Patient is an everyday smoker. He is an occasional alcohol drinker, patient had some nonbloody vomiting. He was given IV Dilaudid IV Tylenol and IV Toradol and was given a liter of fluid bolus and started on normal saline at 150 mL/h. He wanted to eat and did not want to wait to be evaluated by medical team and left against medical advice. No review of systems completed as patient was not evaluated No physical exam was completed as patient was not evaluated Assessment and plan Acute pancreatitis Leukocytosis secondary to above History asthma stable History of nicotine use The impression and plan of care has been dictated by Krissy Smart Nurse Practitioner as directed. Dr. Quang MD I have performed a history and physical examination and medical decision making of this patient, discussed the same with the dictator, and agree with the dictators assessment and plan as written, documented as a scribe. Based on total visit time, I have performed more than 50% of this visit. Past Medical History Past Medical History: Asthma History of Any Multi-Drug Resistant Organisms: None Reported Past Surgical History: No Surgical Hx Reported Smoking Status: Current every day smoker Medications and Allergies Home Medications Medication Instructions Recorded Confirmed Type No Known Home Medications 11/06/20 07/25/24 History Allergies Allergy/AdvReac Type Severity Reaction Status Date / Time morphine AdvReac Nausea Verified 07/25/24 19:30 Physical Exam Vitals: Vital Signs Temp Pulse Pulse Resp BP BP Pulse Ox 07/26/24 08:00 97.6 F 62 16 156/87 99 07/26/24 00:53 97.5 F L 50 L 17 164/92 99 07/26/24 00:38 98.9 F 62 18 144/61 100 07/25/24 23:28 83 18 150/80 98 07/25/24 18:36 89 20 153/99 99 07/25/24 14:52 97.6 F 67 18 153/99 100 Intake and Output 07/25/24 07/26/24 07/26/24 22:59 06:59 14:59 Other: Voiding Method Toilet Toilet # Voids 2 Weight 79.379 kg Results CBC & Chem 7: 07/26/24 07:02 07/26/24 07:02 Labs: Abnormal Lab Results - Last 24 Hours (Table) 07/25/24 07/25/24 07/26/24 Range/Units 16:07 16:07 07:02 WBC 19.72 H 22.38 H (4.50-10.00) 10*3/uL RBC 6.43 H 6.01 H (4.40-5.60) 10*6/uL Hgb 18.2 H (13.0-17.0) g/dL Hct 53.8 H (39.6-50.0) % Immature Gran # 0.07 H 0.09 H (0.00-0.04) 10*3/uL Neutrophils # 14.69 H 18.88 H (1.80-7.70) 10*3/uL Monocytes # 1.57 H 1.98 H (0.20-1.00) 10*3/uL Eosinophils # 0.03 L (0.04-0.35) 10*3/uL Sodium (137-145) mmol/L Creatinine (0.66-1.25) mg/dL Glucose 102 H (74-99) mg/dL Calcium 10.6 H (8.4-10.2) mg/dL Amylase 3112 H* (30-110) U/L Lipase >01793 H (23-300) U/L 07/26/24 Range/Units 07:02 WBC (4.50-10.00) 10*3/uL RBC (4.40-5.60) 10*6/uL Hgb (13.0-17.0) g/dL Hct (39.6-50.0) % Immature Gran # (0.00-0.04) 10*3/uL Neutrophils # (1.80-7.70) 10*3/uL Monocytes # (0.20-1.00) 10*3/uL Eosinophils # (0.04-0.35) 10*3/uL Sodium 136 L (137-145) mmol/L Creatinine 0.55 L (0.66-1.25) mg/dL Glucose 126 H (74-99) mg/dL Calcium (8.4-10.2) mg/dL Amylase 453 H* (30-110) U/L Lipase 2496 H (23-300) U/L Thrombosis Risk Factor Assmnt - Choose All That Apply Any of the Below Risk Factors Present?: Yes Each Factor Represents 1 point: Age 41-60 years Other Risk Factors: No Thrombosis Risk Factor Assessment Total Risk Factor Score: 1 Thrombosis Risk Factor Assessment Level: Low Risk Assessment and Plan Time with Patient: Less than 30
== END 2024-07-26 09:54 | disposition home or self-care (01) | DRG 440 ==
LOC: EC 14:43 → 4SSUR 20:09 → 1SOBS 23:24
PROVIDERS: ADMIT Hospitalist; ATTEND Hospitalist
DX: K85.90 Acute pancreatitis without necrosis or infection, unspecified (principal); F17.210 Nicotine dependence, cigarettes, uncomplicated; J45.909 Unspecified asthma, uncomplicated; Z88.5 Allergy status to narcotic agent
CPT/HCPCS: 36415; 74018; 74177; 76705; 80053; 81003; 82150; 83605; 83690; 85025; 93005; 96361; 96374; 96375; 96376; 99285